=== PATIENT | female | born 2000 | race Caucasian/White ===

== ENCOUNTER 2023-12-20 22:10 | Emergency (ER) | payer SELFPAY ==
[2023-12-20 22:11] VITALS: BP 150/85
[2023-12-20 22:23] VITALS: BMI 36.3
[2023-12-20 23:00] VITALS: BP 149/85
--- NOTE | 2023-12-20 23:03 | ED.GENMED ---
History of Present Illness
General
Chief Complaint: Change in Mental Status
Source: patient and childcare administrator
Exam Limitations: none
Time Seen by Provider: 12/20/23 22:51
History of Present Illness
History of Present Illness:
This a pleasant 23-year-old female who presents from [facility] which is a mental health facility for being 'catatonic'. Patient is new to the facility and she is a resident there for delusions. Today staff called EMS because states that she was having a
'seizure'. EMS arrived. Patient received 2.5 mg of Versed and IV fluids. The behavior they were treating was eye rolling. One of her guardians arrived to the hospital shortly after her and stated that this behavior has been fairly common with
her and not at all atypical. Patient has no complaints. She states that she does not feel that she needs to be in the hospital. She wishes to be discharged.
Vital signs are stable. Patient not hypoxic
Nursing note reviewed. I agree with nursing documentation up to this point in time.
Home Meds and allergies reviewed.
NUMBER AND COMPLEXITY OF PROBLEMS ADDRESSED AT THE ENCOUNTER
� Chronic conditions affecting care: Hallucinations, delusions
� Acute Exacerbation and/or Progression of Chronic Illness: Hallucinations
� Differential Diagnosis includes: Psychiatric behavior
AMOUNT AND/OR COMPLEXITY OF DATA TO BE REVIEWED AND ANALYZED
I performed an independent evaluation of the following and my interpretation is:
EKG:
CT:
X-rays:
Ultrasound:
Laboratory Studies:
Other:
Review of other/old records:
Clinical information was obtained by an independent historian:
Prescriptions/Medications Considered but not given:
Further testing considered but not performed:
RISK OF COMPLICATIONS AND/OR MORBIDITY OR MORTALITY OF PATIENT MANAGEMENT
Social determinants of health affecting care: Good Social Support as she is a resident at a psychiatric facility
Discussion with other providers:
Escalation of care including admission/observation vs risk of discharge considered:
CRITICAL CARE NOTE:
Total Time (exclusive of procedures):
Update:
Review of Systems
Review of Systems
Allergies reviewed?: Yes
Other source history: ambulance crew and guardian
All Other Systems: Not applicable
Constitutional: Reports no symptoms
EENT: Reports no symptoms
Respiratory: Reports no symptoms
Cardiac: Reports no symptoms
ABD/GI: Reports no symptoms
: Reports no symptoms
Musculoskeletal: Reports no symptoms
Skin: Reports no symptoms
Neurological: Reports no symptoms
Endocrine: Reports no symptoms
Hematologic/Lymphatic: Reports no symptoms
Psychiatric: Reports anxiety; Denies suicidal
Phy Exam
General Physical Exam
General Presentation: no apparent distress (Somnolent appearing)
General age: appears older than age
General Skin: warm and dry
General Habitus: normal
General Mental: alert
General Hydration: appears well hydrated
ENT Exam
ENT Exam: EOMI, pharynx normal, neck supple and normocephalic
Eye Exam
Eye Exam: PERRL, cornea clear and conjunctiva normal
Cardiovascular Exam
Cardiovascular Exam: regular rate/rhythm, no edema, no murmur and normal peripheral pulses
Pulmonary Exam
Pulmonary Exam: lungs clear, no respiratory distress, no rales, no crackles, no rhonchi, no stridor, no wheezing and no cough
Gastrointestinal Exam
Gastrointestinal Exam: normal bowel sounds, non tender, soft, no organomegaly, no pulsatile mass and non distended
Neurological Exam
Neurological Exam: alert, oriented x3, no motor deficits and speech normal
Musculoskeletal Exam
Musculoskeletal Exam: full ROM and no edema
Skin Exam
Skin Exam: normal color, warm/dry, no rash and no petechia
Psychiatric Exam
Psychiatric Exam: normal mood/affect
Course
Vital Signs
Initial and Last Documented VS:
Initial Vital Signs
Temp Pulse Resp BP Pulse Ox
98.1 F 106 18 150/85 98
12/20/23 22:11 12/20/23 22:11 12/20/23 22:11 12/20/23 22:11 12/20/23 22:11
Last Documented Vital Signs
Temp Pulse Resp BP Pulse Ox
98.1 F 106 18 150/85 98
12/20/23 22:11 12/20/23 22:11 12/20/23 22:11 12/20/23 22:11 12/20/23 22:11
*Critical Care Note
Total Time (30-74mins, 75-104mins- exclusive of procedures): Not Applicable
Update Note
Update Note:
After speaking with Yuri at length, he states that the nurse thought that patient was having a seizure because patient was not talking and became silent. Yuri stated that while patient was not speaking with nurses during this timeframe, she was
speaking with him. She had an identical episode yesterday with a different staff member.
Patient denies any complaints. Denies suicidal or homicidal ideation, intent, or plan. She has no complaints and states that she does not feel that she needs to be in the hospital. Yuri will be taking her back to the facility.
ED Attending Note
-
Portions of this chart may have been created with voice recognition software.� Occasional wrong word or��sound alike� substitutions may have occurred due to the inherent limitations of voice recognition software.
Discharge Plan
Departure
Patient Disposition: Psych Facility
Date of Disposition: 12/20/23
Time of Disposition: 23:17
Patient with high blood pressure during this ER visit?: Yes
Condition: Good
Discharge Problem:
Altered mental status
Instructions: Altered Mental Status (DC), BLOOD PRESSURE
Referrals:
[facility] [Active] -
UNKNOWN - PT DOES,NOT KNOW [Family Provider] -
Activity Restrictions/Additional Instructions:
It was a pleasure meeting you and taking part in your care. We hope for your continued healing and wellness.
Please read discharge instructions in their entirety. However, they are for general education and may not describe your exact diagnosis at discharge. Information on your ER visit and medical conditions were discussed with you along with appropriate
follow up information...
If indicated, please take your medications as instructed and indicated on discharge paperwork.
Please schedule a follow up appointment as directed. Call to schedule an appointment
Please return to the emergency department with ANY change in, persisting, or worsening of symptoms. If any of your symptoms do not improve, or persist, or become more severe within 6-12 hours, please return to the emergency department for further
care.
Please return to the emergency department if you develop a headache, neck pain/stiffness, fever greater than 100.4F, chest pain, shortness of breath, persistent nausea, vomiting, slurred speech, difficulty walking, numbness/tingling, weakness, signs
of infection or any other symptoms that are worrisome to you.
If you have any questions or concerns please do not hesitate to call the Hospital at
Interventions
Interventions:
*Risk Screen - Suicide Last Done: 12/20/23 22:11
*General Assessment Last Done: 12/20/23 22:11
*Neglect/Abuse Screening Last Done: 12/20/23 22:11
ED- Fall Risk Assessment Last Done: 12/20/23 23:03
*ED COVID-19 Vaccine History Last Done: 12/20/23 22:24
ED- Pulmonary Assessment Last Done: 12/20/23 23:03
ED- Neurological Assessment Last Done: 12/20/23 23:03
ED Swallowing Screen Last Done: 12/20/23 23:03
Discharge Date and Time
Print Language: SURINAMESE
== END 2023-12-20 23:26 ==
LOC: EMR 22:10
PROVIDERS: EMERGENCY PHYSICIAN Student in an Organized Health Care Education/Training Program
DX: R41.82 Altered mental status, unspecified (principal); R44.3 Hallucinations, unspecified
CPT/HCPCS: 99282

== ENCOUNTER 2024-01-08 15:28 | Emergency (ER) | payer BC, SELFPAY ==
[2024-01-08 15:37] VITALS: BP 113/64
[2024-01-08 16:44] VITALS: BMI 34.5
[2024-01-08 16:52] VITALS: BP 114/58
--- NOTE | 2024-01-08 16:53 | ED.GENMED ---
History of Present Illness
General
Chief Complaint: Abdominal Pain
Source: patient
Time Seen by Provider: 01/08/24 16:44
History of Present Illness
History of Present Illness:
Patient is a 23-year-old female presenting to the ED with abdominal pain Radiating to the back. She states this started 5 days ago when her Zyprexa dose was changed. She describes the pain as intermittent crampy and sharp pains. She has not taken
any medication for the pain. She is going to be switched to a new medication later this week. She is currently at an inpatient treatment facility. Last menstrual period was 3 weeks ago. She reports no headaches, nausea, vomiting, diarrhea, chest
pain, shortness of breath, pain, numbness and tingling, or history.
Past History
Social History
Tobacco: Non-smoker
Alcohol: None
Drug: None
Living: other
Review of Systems
Review of Systems
Constitutional: Reports no symptoms
EENT: Reports no symptoms
Respiratory: Reports no symptoms
Cardiac: Reports no symptoms
ABD/GI: Reports abdominal pain
: Reports flank pain
Skin: Reports no symptoms
Neurological: Reports no symptoms
Phy Exam
General Physical Exam
General Presentation: well appearing and no apparent distress
General age: appears stated age
General Skin: warm and dry
General Habitus: normal
General Mental: alert
General Hydration: appears well hydrated
Cardiovascular Exam
Cardiovascular Exam: regular rate/rhythm, no edema, no gallop, no JVD, no murmur and normal peripheral pulses
Pulmonary Exam
Pulmonary Exam: lungs clear, no respiratory distress, no rales, chest non tender, no crackles, no rhonchi, no stridor, no wheezing and no cough
Gastrointestinal Exam
Gastrointestinal Exam: normal bowel sounds, soft, non distended and tender
Musculoskeletal Exam
Musculoskeletal Exam: full ROM
Skin Exam
Skin Exam: normal color and warm/dry
Psychiatric Exam
Psychiatric Exam: normal mood/affect
Course
Orders/Labs/Results
Orders:
Orders
01/08/24 17:11
Test Result ONCE
01/08/24 17:26
Complete Blood Count/With Diff Urgent
Comprehensive Metabolic Panel Urgent
01/08/24 17:40
HCG, Urine Qualitative Screen Urgent
Date Specimen was Collected: 01/08/24
Time Specimen was Collected: 17:39
Urinalysis Urgent
Date Specimen was Collected: 01/08/24
Time Specimen was Collected: 17:39
Urine Microscopic Urgent
Date Specimen was Collected: 01/08/24
Time Specimen was Collected: 17:39
01/08/24 18:27
CT Abd/pelvis W Iv Cont Urgent
Comment:
Reason For Exam: abdominal pain
Abnormal Lab Results
01/08/24 01/08/24
17:26 17:40
MPV 10.5 H fL
(7.4-10.4)
Absolute Monos (auto) 0.9 H 10^3/uL
(0.1-0.6)
Monocytes % 14.3 H %
(1.7-9.3)
Ur Leukocyte Esterase Trace A
(Negative)
Urine Bacteria Few A
(Negative)
01/08/24 17:26
01/08/24 17:26
Vital Signs
Initial and Last Documented VS:
Initial Vital Signs
Temp Pulse Resp BP Pulse Ox
98.9 F 89 16 113/64 97
01/08/24 15:37 01/08/24 15:37 01/08/24 15:37 01/08/24 15:37 01/08/24 15:37
Last Documented Vital Signs
Temp Pulse Resp BP Pulse Ox
98.9 F 89 16 117/78 97
01/08/24 17:00 01/08/24 15:37 01/08/24 15:37 01/08/24 18:00 01/08/24 18:15
MDM/Problems Addressed
Differential Diagnosis Includes:
obstruction, constipation
MDM/Problems Addressed:
Patient is a 23-year-old female with abdominal pain. She is stable. Labs and UA normal. CT abdomen pelvis shows moderate stool burden. No acute process in abdomen or pelvis. Recommendations made to use MiraLAX to soften stool burden and a
decompressed colon. Patient knows that if symptoms worsen or recur she can return to the ED.
Chronic conditions affecting care:
NA
Acute Exacerbation and/or Progression of Chronic Illness:
NA
*Radiology
Radiology exam reviewed: radiology read reviewed (CT AP shows moderate stool burden)
*Pulse Oximetry
Patient hypoxic: no
*EKG
Interpreted by ED Provider?: NA
*Hand Wood Sander Interpretation
Rate: Hand Wood Sander- N/A
*Critical Care Note
Total Time (30-74mins, 75-104mins- exclusive of procedures): Not Applicable
Patient Management
Social determinants of health affecting care: Strong social support
ED Attending Note
-
Portions of this chart may have been created with voice recognition software.� Occasional wrong word or��sound alike� substitutions may have occurred due to the inherent limitations of voice recognition software.
Discharge Plan
Departure
Patient Disposition: Home (Routine Discharge)
Date of Disposition: 01/08/24
Time of Disposition: 20:18
Patient with high blood pressure during this ER visit?: No
Condition: Good
Discharge Problem:
Constipation
Instructions: Constipation, Adult (DC), Abdominal Pain
Referrals:
UNKNOWN - PT DOES,NOT KNOW [Family Provider] -
Interventions
Interventions:
*Risk Screen - Suicide Last Done: 01/08/24 16:44
*General Assessment Last Done: 01/08/24 16:44
*Neglect/Abuse Screening Last Done: 01/08/24 16:44
*ED COVID-19 Vaccine History Last Done: 01/08/24 16:44
[facility]J-Dolvzc-Wegqzdfmvs Assessment Last Done: 01/08/24 16:44
Discharge Date and Time
Print Language: BULGARIAN
[2024-01-08 17:00] VITALS: BP 113/65
[2024-01-08 17:33] LABS: % Immature Granulocytes 0.3 % (0-0.5); % Lymphocytes 27.2 % (20.5-51.1); % Monocytes 14.3 % (1.7-9.3); % Neutrophils 56.2 % (42.2-75.2); Absolute Basophils 0.1 10^3/uL (0-0.2); Absolute Eosinophils 0.1 10^3/uL (0-0.7); Absolute Lymphocytes 1.6 10^3/uL (1.2-3.4); Absolute Monocytes 0.9 10^3/uL (0.1-0.6); Absolute Neutrophils 3.4 10^3/uL (1.4-6.5); Hematocrit 41.7 % (37.0-47.0); Mean Corp Hgb Conc. 33.6 g/dL (33.0-37.0); Mean Corpuscular Hgb 29.4 pg (27.0-31.0); Mean Corpuscular Volume 87.6 fL (81.0-99.0); Mean Platelet Volume 10.5 fL (7.4-10.4); Nucleated Red Blood Cells % 0 %; Platelet Count 296 10^3/uL (130-400); Red Blood Cell Count 4.76 10^6/uL (4.20-5.40)
[2024-01-08 17:48] LABS: ALT (SGPT) 22 U/L (0-35); AST (SGOT) 23 U/L (14-36); Alkaline Phosphatase 88 U/L (38-126); Blood Urea Nitrogen 12 mg/dl (7-17); Carbon Dioxide 25 mmol/L (22-30); Chloride 106 mmol/L (98-107); Estimated Creatinine Clearance > 125 ml/min; Glucose 98 mg/dl (70-99); Potassium 4.3 mmol/L (3.5-5.1); Sodium 138 mmol/L (135-145); Total Bilirubin 0.2 mg/dl (0.2-1.3); Total Protein 6.9 g/dl (6.3-8.2); eGFR > 60.00
[2024-01-08 17:51] LABS: Urine Albumin Negative (Neg - Trace); Urine Bilirubin Negative (Negative); Urine Character Clear (Clear); Urine Color Yellow; Urine Glucose Negative (Negative); Urine Ketone Negative (Negative); Urine Leukocyte Trace (Negative); Urine Nitrite Negative (Negative); Urine Occult Blood Negative (Negative); Urine Urobilinogen Negative (Neg - 1+)
[2024-01-08 17:59] LABS: HCG, Urine Qualitative Screen Negative; Urine Bacteria Few (Negative); Urine Red Blood Cell 0-2 /HPF (0-2)
[2024-01-08 18:00] VITALS: BP 117/78
[2024-01-08 19:00] VITALS: BP 115/78
== END 2024-01-08 20:24 | disposition home or self-care (01) ==
LOC: EMR 15:28
PROVIDERS: EMERGENCY PHYSICIAN Emergency Medicine
DX: K59.00 Constipation, unspecified (principal)
CPT/HCPCS: 99284; 74177; 80053; 81003; 81015; 81025; 85025; Q9967